=== PATIENT | female | born 1995 | race Two or more races ===

== ENCOUNTER 2018-08-02 22:07 | Emergency (ER) | payer MEDICAID ==
[~2018-08-02] VITALS: Ht 152.4 cm; Wt 56.7 kg
[2018-08-02] MEDS ORDERED: PRENATAL 19 CH1 EACH PO (22:16)
--- NOTE | 2018-08-02 22:22 | NUR ---
ED Nurse Note: Patient GABBY with complaints of Syncope and dizziness, no loss of consciousness. Addendum: 08/02/18 at 2232 by ROBBIE ED Nurse Note: Patient did lose consciousness, for at least 2 minutes, and she was assisted to sitting position by bystanders.
[2018-08-02 22:24] VITALS: BP 123/80
[2018-08-02 23:07] LABS: BASOPHILS % (AUTO) 0.6 % (0.0-2.0); EOSINOPHILS % (AUTO) 2.3 % (0.0-3.0); HEMATOCRIT 32.1 % (37.0-47.0); HEMOGLOBIN 10.9 G/DL (12.0-16.0); LYMPHOCYTES % (AUTO) 14.4 % (20.0-45.0); MEAN CORPUSCULAR VOLUME 89 FL (80-99); MONOCYTES % (AUTO) 6.9 % (1.0-10.0); NEUTROPHILS % (AUTO) 75.9 % (45.0-75.0); PLATELET COUNT 230 K/UL (150-450); RED CELL DISTRIBUTION WIDTH 12.8 % (11.6-14.8); WHITE BLOOD COUNT 13.6 K/UL (4.8-10.8)
[2018-08-02 23:20] LABS: ANION GAP 11 mmol/L (5-15); BLOOD UREA NITROGEN 8 mg/dL (7-18); CALCIUM 8.8 MG/DL (8.5-10.1); CARBON DIOXIDE 24 MMOL/L (21-32); CHLORIDE 104 MMOL/L (98-107); CREATININE 0.5 MG/DL (0.55-1.30); POTASSIUM 3.4 MMOL/L (3.5-5.1); SODIUM 139 MMOL/L (136-145)
--- NOTE | 2018-08-02 23:29 | Emergency Room Report ---
History of Present Illness General Chief Complaint: Syncope Source: Patient Present Illness HPI Is a 23-year-old female who is his about 22 weeks . She presents with chief point of syncope. She was at a conference. She was talking to a vendor and then she had a syncopal episode. No injury. She was in a car ride about an hour. She's been walking about 10 minutes. Her said they were walking up and down the steps. Since his she had 3 episodes of lightheadedness but never passed out. No trauma. No fever chills. No chest pain. Better now. Allergies: Coded Allergies: PEANUT (Verified Allergy, Unknown, 08/02/18) Uncoded Allergies: PEANUTS (Allergy, Unknown, 08/02/18) Patient History Past Medical History: see triage record, old chart reviewed Past Surgical History: none Pertinent Family History: none Social History: Denies: smoking Last Menstrual Period: 12-06-2017 Now: Yes - 24 WEEKS. Immunizations: other Reviewed Nursing Documentation: PMH: Agreed; PSxH: Agreed Nursing Documentation-PMH Past Medical History: No History, Except For Hx Asthma: Yes Review of Systems Eye: Denies: eye pain, blurred vision ENT: Denies: ear pain, nose congestion, throat swelling Respiratory: Denies: cough, shortness of breath Cardiovascular: Denies: chest pain, palpitations Gastrointestinal: Denies: abdominal pain, diarrhea, nausea, vomiting Musculoskeletal: Denies: back pain, joint pain Skin: Denies: rash Neurological: Denies: headache, numbness Endocrine: Denies: increased thirst, increased urine Hematologic/Lymphatic: Denies: easy bruising All Other Systems: negative except mentioned in HPI Physical Exam Vital Signs Date Time Temp Pulse Resp B/P (MAP) Pulse Ox O2 Delivery O2 Flow Rate FiO2 08/02/18 22:08 94 18 123/80 100 Room Air vitals normal Sp02 EP Interpretation: reviewed, normal General Appearance: well appearing, no apparent distress, alert Head: normocephalic, atraumatic Eyes: bilateral eye PERRL, bilateral eye EOMI ENT: hearing grossly normal, normal pharynx Neck: full range of motion, supple, no meningismus Respiratory: chest non-tender, lungs clear, normal breath sounds Cardiovascular #1: regular rate, rhythm, no murmur Gastrointestinal: normal bowel sounds, non tender, no mass, no organomegaly, no bruit, non-distended Musculoskeletal: back normal, gait/station normal, normal range of motion Psychiatric: mood/affect normal Skin: warm/dry Medical Decision Making Diagnostic Impression: Primary Impression: Syncope Qualified Codes: R55 - Syncope and collapse Additional Impression: with one fetus in second trimester ER Course Patient with syncope. Better now. No arrhythmia. No evidence of PE, ACS, dissection to name a few. Bedside with ultrasound showed a positive IUP good with movement. Lab Results Impression labs unremarkable EKG Diagnostic Results Rate: normal Rhythm: NSR ST Segments: no acute changes Rhythm Strip Diag. Results EP Interpretation: yes Rate: 86 Rhythm: NSR, no PVC's, no ectopy Last Vital Signs Date Time Temp Pulse Resp B/P (MAP) Pulse Ox O2 Delivery O2 Flow Rate FiO2 08/02/18 22:24 82 18 123/80 100 Room Air Status: improved Disposition: HOME, SELF-CARE Condition: Stable Referrals: NOT CHOSEN IPA/MD,REFERRING (PCP) Patient Instructions: Syncope Additional Instructions: Increase fluids. Follow-up with your [facility] in a week. Return if worse. Torres Barton MD Aug 02, 2018 23:29
[2018-08-02 23:53] LABS: APPEARANCE,URINE SLIGHTLY CLOUDY; BILIRUBIN, URINE NEGATIVE (NEGATIVE); COLOR,URINE PALE YELLOW; GLUCOSE, URINE (UA) NEGATIVE (NEGATIVE); KETONES,URINE NEGATIVE (NEGATIVE); LEUKOCYTE ESTERASE ,URINE NEGATIVE (NEGATIVE); NITRITE,URINE NEGATIVE (NEGATIVE); PH,URINE 7 (4.5-8.0); PROTEIN,URINE NEGATIVE (NEGATIVE); UROBILINOGEN,URINE NORMAL MG/DL (0.0-1.0)
[2018-08-03] MEDS ORDERED: NITROFURANTOIN100 M2 ORAL (00:10)
[2018-08-03 00:18] VITALS: BP 123/80
--- NOTE | 2018-08-03 00:21 | NUR ---
ED Nurse Note: Patient cleared for discharge per eRMD, patient ambulatory with steady gait, A&Ox4, no s/s of acute distress. Patient accompanied by significant other, ID band removed, iv removed. patient verbalized understanding of discharge instructions and departed with all belongings to home via private vehicle.
--- NOTE | 2018-08-05 19:29 | Cardiology Report ---
APPROVED REPORT EKG Measurement Heart [id number] Normal sinus rhythm with sinus arrhythmia Normal ECG
== END 2018-08-03 00:18 | disposition home or self-care (01) ==
LOC: EDBD 22:07 → EMR 22:24
DX: O26.91 Pregnancy related conditions, unspecified, first trimester (principal); Z3A.22 22 weeks gestation of pregnancy; R55 Syncope and collapse; Z91.010 Allergy to peanuts
CPT/HCPCS: 36415; 80048; 81001; 85025; 87086; 93005; 96360; 99284